=== PATIENT | male | born 1950 | race Caucasian/White ===

== ENCOUNTER → 2021-01-08 | Outpatient (CLI) | payer MEDICARE | LOC: M LABSMTC 11:03 | PROVIDERS: ATTEND Internal Medicine Cardiovascular Disease | DX: Z01.818 Encounter for other preprocedural examination (principal); I51.9 Heart disease, unspecified ==

== ENCOUNTER → 2024-05-02 | Outpatient (REF) | payer MEDICARE | LOC: M LAB REF 13:32 | PROVIDERS: ATTEND Plastic Surgery Surgery of the Hand | DX: L72.0 Epidermal cyst (principal) ==